=== PATIENT | female | born 1965 | race Caucasian/White ===

== ENCOUNTER 2021-02-08 08:05 | Emergency (ER) | payer OTHER ==
[~2021-02-08] VITALS: Ht 157.5 cm; Wt 85.4 kg
[2021-02-08] MEDS ORDERED: KETOROLAC 30 MG/1 ML IM ONE (09:00)
[2021-02-08] MEDS ORDERED: CYCLOBENZAPRINE 10 MG TABLET PO ONE (09:00)
[2021-02-08] MEDS ORDERED: ONDANSETRON ODT 4 MG PO ONE (09:00)
[2021-02-08 09:12] LABS: BASOPHILS % (AUTO) 1 % (0-1); EOSINOPHILS % (AUTO) 3 % (1-7); LYMPHOCYTES % (AUTO) 25 % (22-44); MEAN CORPUSCULAR HEMOGLOBIN 28.3 pg (27.0-34.8); MEAN CORPUSCULAR HGB CONC 33.3 g/dL (32.4-35.8); MEAN PLATELET VOLUME 6.8 fL (7.4-10.4); MONOCYTES % (AUTO) 7 % (2-9); NEUTROPHILS % (AUTO) 65 % (42-75); PLATELET COUNT 365 x10^3/uL (130-400); RED BLOOD COUNT 5.34 x10^6/uL (3.82-5.3); RED CELL DISTRIBUTION WIDTH 13.5 % (9.6-15.2)
[2021-02-08 09:23] LABS: ALANINE AMINOTRANSFERASE 19 U/L (12-78); ANION GAP 2 mmol/L (5-15); CALCIUM 9.3 mg/dL (8.5-10.1); CHLORIDE 113 mmol/L (98-107); CREATININE 0.64 mg/dL (0.55-1.02)
[2021-02-08 09:25] LABS: ALKALINE PHOSPHATASE 77 U/L (45-117); BILIRUBIN,TOTAL 0.5 mg/dL (0.2-1.0); TOTAL PROTEIN 7.6 g/dL (6.4-8.2)
--- NOTE | 2021-02-08 09:48 | NUR ---
Pt c/o RUQ pain radiating to RT back x 3 days, "making it hard to walk". Took Aleve yesterday, none today. Denies N/V, diarrhea, constipation. Hx: constipation. LMP: menopausal. Last BM: yesterday. Last oral intake: currently drinking iced tea. Instructed pt to not drink anything until cleared by medical staff: understanding verbalized.
[2021-02-08] MEDS ORDERED: COLLAGEN (09:59)
[2021-02-08] MEDS ORDERED: BIOTIN (09:59)
[2021-02-08] MEDS ORDERED: probiotic 10 (09:59)
[2021-02-08] MEDS ORDERED: colon clenz (09:59)
[2021-02-08] MEDS ORDERED: [UNRECOGNIZED DRUG - OTHER] (09:59)
[2021-02-08] MEDS ORDERED: [UNRECOGNIZED DRUG - OTHER] (09:59)
--- NOTE | 2021-02-08 10:01 | NUR ---
Pt prefers to hold off on Toradol IM, for now. Denies nausea: will hold Zofran, for now.
[2021-02-08] MEDS ORDERED: CYCLOBENZAPRINE 10 MG TABLET ONE (10:05)
--- NOTE | 2021-02-08 10:53 | NUR ---
Pt ambulatory to & from [facility] w/out incident; gait steady. Voided specimen provided: clear yellow.
[2021-02-08 11:05] LABS: MICROSCOPIC NOT IND
[2021-02-08 12:06] VITALS: BP 111/62
== END 2021-02-08 12:08 | disposition home or self-care (01) ==
LOC: ED 09:09
DX: R10.11 Right upper quadrant pain (principal); K59.00 Constipation, unspecified; M54.5 Low back pain; G89.29 Other chronic pain
CPT/HCPCS: 36415; 80053; 81003; 83690; 85025; 99283